=== PATIENT | female | born 1950 | race Caucasian/White ===

== ENCOUNTER 2021-12-13 02:41 | Observation (INO) | payer MEDICARE, SELFPAY ==
[2021-12-13 03:24] LABS: #Basophils 0.1 10x3/uL (0.0-0.2); #Eosinphils 0.4 10x3/uL (0.0-0.5); #Monocytes 0.5 10x3/uL (0.0-1.1); #Neutrophils 4.3 10x3/uL (1.5-8.4); %Basophils 0.9 % (0.0-2.0); %Eosinophils 5.6 % (0.0-6.0); %Lymphocytes 21.5 % (18.0-47.0); %Monocytes 7.6 % (0.0-10.0); %Neutrophils 64.1 % (40.0-75.0); Hemoglobin 6.4 g/dL (12.0-15.5); Mean Corpuscular HGB CONC 30.5 g/dL (32.0-36.0); Mean Corpuscular Hemoglobin 30.6 pg (27.0-33.0); Mean Corpuscular Volume 100.5 fl (81.6-98.3); Mean Platelet Volume 9.9 fl (7.4-10.4); Platelet Count 305 10x3/uL (150-450); RBC Distribution Width 14.6 % (11.5-14.5); Red Blood Cell (RBC) Count 2.09 10x6/uL (3.90-5.03); White Blood Cell (WBC) Count 6.8 10x3/uL (3.5-10.5)
[2021-12-13 03:29] LABS: ALT (SGPT) 9 U/L (8-55); AST (SGOT) 10 U/L (5-34); Albumin 3.4 g/dL (3.4-4.8); Alkaline Phosphatase 47 U/L (40-110); Anion Gap 15 mmol/L (10-20); BUN (Urea Nitrogen) 13 mg/dL (9.8-20.1); Bilirubin, Total 0.3 mg/dL (0.2-1.2); Calc. Creatinine Clearance 0 mL/min (70-130); Calcium 8.4 mg/dL (7.8-10.44); Carbon Dioxide 20 mmol/L (23-31); Chloride 109 mmol/L (98-107); Globulin 2.2 g/dL (2.4-3.5); Glucose 110 mg/dL (80-115); Potassium 3.1 mmol/L (3.5-5.1); Protein, Total 5.6 g/dL (5.8-8.1); Sodium 141 mmol/L (136-145)
[2021-12-13] MEDS ORDERED: Metoprolol Tartrate 5 MG/5 ML VIAL IVP PRN (06:59)
[2021-12-13] MEDS ORDERED: Diazepam 5 MG TAB PO PRN (07:01)
[2021-12-13] MEDS ORDERED: Metoprolol Tartrate 5 MG/5 ML VIAL IVP SCH (07:45)
[2021-12-13 08:40] LABS: SARS-CoV-2 NAA Rapid Test Not Detected (NotDetected)
[2021-12-13] MEDS ORDERED: PROPOFOL 40 ML ONE (10:00)
[2021-12-13] MEDS ORDERED: Fentanyl 100 MCG/2 ML VIAL ONE ×2 (10:00→11:22)
[2021-12-13] MEDS ORDERED: Midazolam HCl 2 mg/2 ml Vial ONE (10:00)
[2021-12-13] MEDS ORDERED: ePHEDrine Sulfate 50 MG/10 ML VIAL ONE (10:00)
[2021-12-13] MEDS ORDERED: PHENYLEPHRINE-NS 100 MCG/ML 10 ML SYRINGE ONE (10:01)
[2021-12-13] MEDS ORDERED: Lidocaine 1% PF 5 ML VIAL ONE (10:01)
[2021-12-13] MEDS ORDERED: Ondansetron PF 4 MG/2 ML Vial ONE (10:01)
[2021-12-13] MEDS ORDERED: Dexamethasone 20 MG/5 ML VIAL ONE (10:01)
[2021-12-13] MEDS ORDERED: Ketorolac Tromethamine 30 MG/ML VIAL ONE (10:23)
[2021-12-13] MEDS ORDERED: Tranexamic Acid 1,000 MG/10 ML VIAL ONE (10:40)
[2021-12-13] MEDS ORDERED: CEFAZOLIN 1 GM VIAL ONE (11:01)
[2021-12-13] MEDS ORDERED: HYDROcodone/Acetaminophen 5/325 mg Tablet PO PRN ×2 (12:35→12:36)
[2021-12-13 14:11] LABS: #Basophils 0.1 10x3/uL (0.0-0.2); #Eosinphils 0.1 10x3/uL (0.0-0.5); #Monocytes 0.2 10x3/uL (0.0-1.1); #Neutrophils 7.4 10x3/uL (1.5-8.4); %Basophils 0.7 % (0.0-2.0); %Eosinophils 1.6 % (0.0-6.0); %Lymphocytes 6.2 % (18.0-47.0); %Monocytes 1.8 % (0.0-10.0); %Neutrophils 88.9 % (40.0-75.0); Hemoglobin 8.1 g/dL (12.0-15.5); Mean Corpuscular Hemoglobin 28.4 pg (27.0-33.0); Mean Corpuscular Volume 94.7 fl (81.6-98.3); Mean Platelet Volume 9.7 fl (7.4-10.4); Platelet Count 264 10x3/uL (150-450); RBC Distribution Width 16.9 % (11.5-14.5); Red Blood Cell (RBC) Count 2.85 10x6/uL (3.90-5.03); White Blood Cell (WBC) Count 8.3 10x3/uL (3.5-10.5)
[2021-12-13] MEDS: chlordiazePOXIDE HCl 5 MG CAP PO SCH ×2 (16:17→20:29)
[2021-12-13] MEDS: Tranexamic Acid 650 MG TAB PO SCH ×2 (16:20→20:29)
[2021-12-13] MEDS ORDERED: cloNIDine 0.1 MG TAB PO PRN (18:54)
[2021-12-14] MEDS ORDERED: Lorazepam 2 MG/ML VIAL SLOW IVP PRN (00:20)
[2021-12-14] MEDS: Tranexamic Acid 650 MG TAB PO SCH (08:18)
[2021-12-14] MEDS: chlordiazePOXIDE HCl 5 MG CAP PO SCH (08:18)
[2021-12-14 08:25] VITALS: BP 124/60; TEMP 98.2
== END 2021-12-14 10:15 | disposition home or self-care (01) ==
LOC: CSHERS 02:41 → CSHPP 05:57
PROVIDERS: ADMIT Student in an Organized Health Care Education/Training Program; ATTEND Student in an Organized Health Care Education/Training Program
PROC: 0UB98ZZ Excision of Uterus, Via Natural or Artificial Opening Endoscopic (ICD-10-PCS; principal; 2021-12-13)
DX: C54.1 Malignant neoplasm of endometrium (principal); D25.9 Leiomyoma of uterus, unspecified; D64.9 Anemia, unspecified; G25.0 Essential tremor; G25.81 Restless legs syndrome; Z20.822 Contact with and (suspected) exposure to COVID-19
CPT/HCPCS: 36430; 58561; 80053; 85025 ×2; 86850; 86900; 86901; 86920; 96374; 96375; 96376; 99285; G0378 ×3; P9016; U0002; 88305; 88325; 88341; 88342; J0690; J1100; J1885; J2060; J2250; J2405; J2704; J3010

== ENCOUNTER 2021-12-29 21:34 | Emergency (ER) | payer SELFPAY | END 2021-12-29 22:15 | disposition left against medical advice (07) | LOC: CSHERS 21:34 | DX: Z53.21 Procedure and treatment not carried out due to patient leaving prior to being seen by health care provider (principal) ==